=== PATIENT | female | born 1935 | race Caucasian/White ===

== ENCOUNTER 2016-09-29 07:30 | Day surgery (SDC) | payer BC ==
[2016-09-25 13:35] LABS: HEMATOCRIT 42.4 % (36.0-48.0); HEMOGLOBIN 13.8 g/dL (12.0-16.0)
--- NOTE | ~2016-09-29 | OP ---
Record Of Operation [facility] [address] [place]. [address] NAME: BELLE CHO : 35 STATUS : REG [facility] [place] PAT#: [id number] AGE: 81 ADM/REG DATE : 09/29/16 MR#: [id number] REPORT SERV DATE: 09/29/16 DICTATED BY: DMITRIY HERNDON DATE: 09/29/16 REPORT STATUS : Draft TRANSCRIBED BY: MODL DATE: 09/29/16 DATE OF PROCEDURE: 09/29/2016 SERVICE: Otolaryngology. SURGEON: Dmitriy Herndon MD. PREOPERATIVE DIAGNOSIS: Left chin melanoma. POSTOPERATIVE DIAGNOSIS: Left chin melanoma. PROCEDURE PERFORMED: 1. Wide local excision of chin melanoma. 2. Bilateral local advancement flaps for closure. 3. Defect measuring greater than 5 cm. 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 Based on this, she was referred for surgical intervention. Planned wide local excision had been discussed with the family. We also discussed possible skin graft versus local flap advancement closure. ANESTHESIA: General endotracheal. RETAINED ITEMS: None. COMPLICATIONS: None. BLOOD LOSS: 10 mL. DESCRIPTION OF PROCEDURE: The patient was identified in preoperative holding, where informed consent was ensured with her . She was brought to the operating room and placed on the operating table in supine position. General endotracheal anesthesia was induced without difficulty. A time-out was performed to correctly identify the patient and discuss operative plan. The planned wide local excision was marked with a correction was marked with 1 cm margins. This was injected with 1% lidocaine with 1:100,000 epinephrine and allowed to take full effect. The patient was then prepped and draped in the standard sterile surgical fashion. A 15 blade was used to establish a circumferential margin to the previously marked incision. With 1 cm margins, the entirety of the melanoma on the left chin was excised. The superior portion was marked with a short stitch and the lateral portion was marked with a long stitch. Margins were subsequently taken from the specimen in a clock-like fashion from 12 to 3, 3 to 6, 6 to 9, 9 to 12. We then proceeded with the reconstructive portion of the procedure. In order to avoid full-thickness skin graft, H flaps were elevated bilaterally. The superior portion of the flap was kept in the mental crease. The inferior portion was kept in the submental region. Adequate tissue elevation was performed ensuring adequate Record Of Operation [address] [address] NAME: BELLE CHO : 35 STATUS : REG [facility] [place] PAT#: [id number] AGE: 81 ADM/REG DATE : 09/29/16 MR#: [id number] REPORT SERV DATE: 09/29/16 DICTATED BY: DMITRIY HERNDON DATE: 09/29/16 REPORT STATUS : Draft TRANSCRIBED BY: MALAIKA DATE: 09/29/16 thickness and the subcutaneous tissue. Once adequate undermining had been performed, the local flaps were advanced and reapproximated to each other. The vertical limb of the H flap was reapproximated first. This was performed with 3-0 Vicryl. The surrounding peripheral horizontal H incisions were then reapproximated to surrounding healthy skin with 3-0 Vicryl in a deep fashion. Skin edges were reapproximated with 5-0 fast in a running nonlocking fashion. The wound edges were then covered with Steri-Strips. A gauze dressing was placed as well as an Op-Site. The patient was then turned over to Anesthesia for awakening and extubation. She was transferred to the PACU in stable condition. DISPOSITION: The patient will follow up in approximately one week for postoperative evaluation. ROSE/MALAIKA Dmitriy Herndon MD / [id number] CC: MD Mark Cruz M.D.
[~2016-09-29 07:30] MED LIST: ACET500CAP PO; ATV1 PO; NAMENDA10 MG PO; PRAVAC PO; REMERON30 MG PO; RESTORIL30 MG PO; RISP1 PO; TRINTELLIX10 MG PO; ZOL100 PO
== END 2016-09-29 17:45 | disposition home or self-care (01) ==
LOC: SDC 07:30
PROVIDERS: Otolaryngology
PROC: 0HB1XZZ Excision of Face Skin, External Approach (ICD-10-PCS; 2016-09-29)
PROC: 0HX1XZZ Transfer Face Skin, External Approach (ICD-10-PCS; principal; 2016-09-29 08:45)
DX: C43.39 Malignant melanoma of other parts of face (principal); E78.5 Hyperlipidemia, unspecified; F03.90 Unspecified dementia, unspecified severity, without behavioral disturbance, psychotic disturbance, mood disturbance, and anxiety; F32.9 Major depressive disorder, single episode, unspecified; Z79.899 Other long term (current) drug therapy
CPT/HCPCS: 85014; 85018; 88305; 88341; 88342; 93005; A9270-GY; J0690; J2405; J2710; J3010